=== PATIENT | female | born 1940 | race Caucasian/White ===

== ENCOUNTER 2020-03-19 08:05 | Outpatient (REF) | payer MEDICARE, SELFPAY ==
--- NOTE | 2020-03-19 14:11 | MHC.AU.AEV ---
Adult Audiological Evaluation AUD- Audiology Adult New Evaluation Start: 03/19/20 14:03 Freq: Status: Active Protocol: Activity Type Activity Date Activity User E-Sign Co-Sign Detail Recorded Client Recorded Date Recorded By Document 03/19/20 14:03 BELL [id number] 03/19/20 14:11 BELL 03/19/20 14:03 Adult Audiological Evaluation [Date of Visit] -Date of Visit 03/19/20 [Reason For Appointment] -Reason for Appointment Audiologic re- evaluation due to increased difficulties understanding speech -Does patient feel they have a hearing Yes loss? -If Yes, Which Ear? Both Ears [Previous Testing] -Has hearing been tested previously? Yes -Previous Hearing Test Results 02/19/2019 Mild sloping to moderately- severe sensorineural hearing loss with the left ear being 10 dB poorer than the right at 1000 and 1500 Hz. Speech discrimination is 92% at 70 dB HL for both ears. [Otoscopy] -Otoscopy- Right Ear Unremarkable -Otoscopy- Left Ear Unremarkable [Tympanometry] -Tympanometry- Right Ear Normal Middle Ear System ( Type A) -Tympanometry- Left Ear Normal Middle Ear System ( Type A) [Hearing Test Methods] -Transducer(s) Used Insert Earphones,Bone Conduction -Method Conventional Audiometry -Stimuli Used Pure Tones [Hearing- Right Ear] -Description of Hearing- Right Ear Mild sloping to moderately- severe sensorineural hearing loss [Hearing- Left Ear] -Description of Hearing- Left Ear Mild sloping to moderately- severe sensorineural hearing loss [Speech Recognition Threshold (SRT)] -Method Used Monitored Live Voice -Stimuli Used Spondee Words -Speech Recognition Threshold (SRT)- 40 dB HL Right Ear (in dBHL) -Speech Recognition Threshold (SRT)- 50 dB HL Left Ear (in dBHL) [Word Discrimination] -Method: Recorded Lists, Not performed at today's visit. -Word Discrimination- Right Ear 80% at 80 dB HL -Word Discrimination- Left Ear 84% at 85 dB HL [Compared to Most Recent Evaluation:] -Compared to the most recent Thresholds have evaluation: decreased bilaterally., Word discrimination scores have decreased bilaterally. [Recommendations] -Recommendations Audiological re -evaluation in one year.,Trial with amplification is recommended. ,Medical clearance from a physician is required before fitting. -Recommendations (Other) Hearing AiD Fitting scheduled for 04/07/2020 [Diagnosis] -Primary Diagnosis: H90.3 Bilateral Sensorineural Hearing Loss -Secondary Diagnosis: N/A [Services Performed] -Services Performed Comprehensive Audiological Evaluation (CPT 13520), Tympanometry ( CPT 64420) Signature [Signature] -Provider Gurwinder Baptiste, [facility]
== END 2020-03-19 08:06 | disposition home or self-care (01) ==
LOC: HO.SH 08:05
PROVIDERS: Visit Provider Internal Medicine
DX: H90.3 Sensorineural hearing loss, bilateral (principal)
CPT/HCPCS: 92557; 92567

== ENCOUNTER 2020-04-07 09:50 | Outpatient (REF) | payer SELFPAY | END 2020-04-07 09:51 | disposition home or self-care (01) | LOC: HO.HAP 09:50 | PROVIDERS: PCP Internal Medicine; Visit Provider Internal Medicine | DX: Z46.1 Encounter for fitting and adjustment of hearing aid (principal) | CPT/HCPCS: 92700; V5260 ==

== ENCOUNTER 2020-04-21 11:26 | Outpatient (REF) | payer SELFPAY | END 2020-04-21 11:27 | disposition home or self-care (01) | LOC: HO.HAP 11:26 | PROVIDERS: PCP Internal Medicine; Referring Provider Internal Medicine; Visit Provider Internal Medicine | DX: Z13.89 Encounter for screening for other disorder (principal) | CPT/HCPCS: 92700 ==

== ENCOUNTER 2021-04-14 08:13 | Outpatient (REF) | payer MEDICARE, SELFPAY ==
--- NOTE | 2021-04-14 13:35 | MHC.AU.AHA ---
Adult Audiological Evaluation Date of Visit: 04/14/21 Reason for Appointment: Audiological re-evaluation to monitor the status of Mrs. Huynh's hearing loss. She has a known bilateral, sensorineural hearing loss and uses hearing aids binaurally. She denies any significant changes to her hearing or medical history since her last visit. Previous Hearing Test Results: [facility] [place]19/[place]- Mild sloping to moderately-severe sensorineural hearing loss bilaterally. Medical History: Medical History: Cancer Medical History: Breast cancer treated with radiation Hearing Instrument History- Right Ear: Warehouse Order Puller: [employer] Model: [email or web address] HS-R Serial Number: [id number] Battery Size: Rechargeable Repair Warranty: 04/28/2023 Loss and Damage Warranty: 04/28/2023 Dispensed By: [facility] Date of Fittin04/07/2020 Hearing Instrument History- Left Ear: Warehouse Order Puller: [employer] Model: [email or web address] HS-R Serial Number: [id number] Battery Size: Rechargeable Warranty: 04/28/2023 Loss and Damage Warranty: 04/28/2023 Dispensed By: [facility] Date of Fittin04/07/2020 Otoscopy: Right Ear: Unremarkable Left Ear: Unremarkable Tympanometry: Tympanometry performed due to: To assess integrity of the middle ear system Right Ear: Normal Middle Ear System (Type A) Left Ear: Negative Middle Ear Pressure (Type C), Reduced Middle Ear Compliance (Type As) Hearing Evaluation: Transducer(s) Used: Insert Earphones, Bone Conduction Method: Conventional Audiometry Stimuli Used: Pure Tones Right Ear: Description of Hearing: Mild sloping to moderately-severe sensorineural hearing loss from 250-8000 Hz. Left Ear: Description of Hearing: Moderate sloping to moderately-severe sensorineural hearing loss from 250-8000 Hz. Speech Recognition Threshold (SRT): Method Used: Monitored Live Voice Stimuli Used: Spondee Words Right Ear: 35 dBHL Left Ear: 40 dBHL Word Discrimination: Method: Recorded Lists Word Lists Used: NU-6 Right Ear: 84% at 85 dBHL Left Ear: 96% at 85 dBHL Comparison: Compared to the most recent evaluation: Hearing is stable. Recommendations: Trial with amplification is recommended. Hearing aid maintenance performed today. Hearing aid(s) reprogrammed with updated test results. Diagnosis: Primary Diagnosis: H90.3 Bilateral Sensorineural Hearing Loss Services Performed: Comprehensive Audiological Evaluation (CPT 35266) Tympanometry (CPT 91968) Signature: Provider: Gurwinder Maxwell, CCC-A
== END 2021-04-14 08:14 | disposition home or self-care (01) ==
LOC: HO.SH 08:13
PROVIDERS: Visit Provider Physician Assistant Medical
DX: H90.3 Sensorineural hearing loss, bilateral (principal)
CPT/HCPCS: 92557; 92567

== ENCOUNTER 2022-11-02 07:47 | Outpatient (REF) | payer MEDICARE, SELFPAY | END 2022-11-02 07:48 | disposition home or self-care (01) | LOC: HO.SH 07:47 | PROVIDERS: Visit Provider Physician Assistant Medical | DX: H90.3 Sensorineural hearing loss, bilateral (principal) | CPT/HCPCS: 92557; 92567 ==

== ENCOUNTER 2023-07-01 10:46 | Outpatient (REF) | payer SELFPAY ==
--- NOTE | 2023-07-01 14:02 | MHC.AU.HA3 ---
Hearing Instrument Follow-Up- Binaural Date of Visit: 07/01/23 Right Ear: Nam, , Color, Serial Number: France Barnhart Half Shell ITC #[id number] Tool And Cutter Grinder Repair Warranty: 04/28/2023 Tool And Cutter Grinder Loss and Damage Warranty: 04/28/2023 [facility] Service Plan: Battery Size: Rechargeable Developmental Behavioral Physician/Slim Tube: Earmold/Dome/CShell/SlimTip: Type of Wax Guard: HearClear Dispensed By: [facility] Date of Fittin04/07/2020 Left Ear: Nam, , Color, Serial Number: France [employer]hart Half Shell ITC #[id number] Tool And Cutter Grinder Repair Warranty: 04/28/2023 Tool And Cutter Grinder Loss and Damage Warranty: 04/28/2023 [facility] Service Plan: Battery Size: Rechargeable Developmental Behavioral Physician/Slim Tube: Earmold/Dome/CShell/SlimTip: Type of Wax Guard: HearClear Dispensed By: [facility] Date of Fittin04/07/2020 Follow-Up Summary: Left aid dropped off, . Cleaned and checked, changed wax guard, listening check positive. Software shows aid is 100% charged. All set to merchandise pickup/receiving associate. Recommendations: Recommendations: Patient will call if problems persist. Diagnosis Code(s): Primary Diagnosis: H90.3 Bilateral Sensorineural Hearing Loss Signature: Provider: Joseph Paniagua, [facility]
== END 2023-07-01 10:47 | disposition home or self-care (01) ==
LOC: HO.HAP 10:46
PROVIDERS: Visit Provider Internal Medicine
DX: Z46.1 Encounter for fitting and adjustment of hearing aid (principal); H90.3 Sensorineural hearing loss, bilateral
CPT/HCPCS: 92592

== ENCOUNTER 2023-08-08 10:28 | Outpatient (REF) | payer SELFPAY | END 2023-08-08 10:29 | disposition home or self-care (01) | LOC: HO.HAP 10:28 | PROVIDERS: Visit Provider Internal Medicine | DX: Z46.1 Encounter for fitting and adjustment of hearing aid (principal); H90.3 Sensorineural hearing loss, bilateral | CPT/HCPCS: V5267 ==

== ENCOUNTER 2024-02-02 11:13 | Outpatient (REF) | payer SELFPAY | END 2024-02-02 11:14 | disposition home or self-care (01) | LOC: HO.HAP 11:13 | PROVIDERS: Visit Provider Internal Medicine | DX: Z46.1 Encounter for fitting and adjustment of hearing aid (principal) | CPT/HCPCS: 92593 ==

== ENCOUNTER 2024-02-10 15:13 | Outpatient (REF) | payer SELFPAY | END 2024-02-10 15:14 | disposition home or self-care (01) | LOC: HO.HAP 15:13 | PROVIDERS: Visit Provider Internal Medicine | DX: Z46.1 Encounter for fitting and adjustment of hearing aid (principal); H90.3 Sensorineural hearing loss, bilateral | CPT/HCPCS: V5014 ==

== ENCOUNTER 2024-03-16 16:09 | Outpatient (REF) | payer SELFPAY | END 2024-03-16 16:10 | disposition home or self-care (01) | LOC: HO.HAP 16:09 | PROVIDERS: Visit Provider Internal Medicine | DX: Z46.1 Encounter for fitting and adjustment of hearing aid (principal); H90.3 Sensorineural hearing loss, bilateral | CPT/HCPCS: 92593 ==

== ENCOUNTER 2024-06-21 09:59 | Outpatient (REF) | payer SELFPAY | END 2024-06-21 10:00 | disposition home or self-care (01) | LOC: HO.HAP 09:59 | PROVIDERS: Visit Provider Physician Assistant Medical | DX: Z46.1 Encounter for fitting and adjustment of hearing aid (principal); H90.3 Sensorineural hearing loss, bilateral | CPT/HCPCS: 92593 ==